=== PATIENT | female | born 1985 | race Hispanic/Latino ===

== ENCOUNTER 2022-05-24 12:38 | Outpatient (CLI) | payer OTHER | END 2022-05-24 12:39 | disposition home or self-care (01) | LOC: CSHLAB 12:38 | PROVIDERS: ATTEND Student in an Organized Health Care Education/Training Program | DX: Z20.822 Contact with and (suspected) exposure to COVID-19 (principal) | CPT/HCPCS: 87811 ==

== ENCOUNTER 2022-05-27 19:15 | Inpatient (IN) | payer OTHER ==
[2022-05-27 20:57] VITALS: BMI 28.5
[2022-05-27] MEDS ORDERED: hydrALAZINE 20 MG/ML VIAL SLOW IVP PRN (23:39)
[2022-05-27] MEDS ORDERED: Carboprost 250 MCG/ML AMP IM PRN (23:39)
[2022-05-27] MEDS ORDERED: Methylergonovine 0.2 MG/ML VIAL IM PRN (23:39)
[2022-05-27] MEDS ORDERED: Ondansetron PF 4 MG/2 ML Vial IVP PRN (23:39)
[2022-05-27] MEDS ORDERED: Lidocaine 1% (PF) 30 ML VIAL SC PRN (23:39)
[2022-05-27] MEDS ORDERED: Misoprostol 200 MCG TAB PR PRN (23:39)
[2022-05-27] MEDS ORDERED: Promethazine HCl 25 MG/ML VIAL IM PRN (23:39)
[2022-05-27] MEDS ORDERED: Ibuprofen 800 MG TAB PO PRN (23:39)
[2022-05-27] MEDS ORDERED: Acetaminophen 500 MG TAB PO PRN (23:39)
[2022-05-27] MEDS ORDERED: NS w/ Oxytocin 30 units 500 ML IV SCH ×2 (23:45)
[2022-05-27] MEDS ORDERED: Misoprostol 100 MCG TAB VAG SCH (23:45)
[2022-05-27] MEDS ORDERED: Lactated Ringer's 1,000 ML IV SCH (23:45)
[2022-05-28 00:23] LABS: Mean Corpuscular HGB CONC 33.7 g/dL (32.0-36.0); Mean Corpuscular Volume 100.8 fl (81.6-98.3); Platelet Count 244 10x3/uL (150-450); RBC Distribution Width 12.2 % (11.5-14.5); Red Blood Cell (RBC) Count 3.53 10x6/uL (3.90-5.03); White Blood Cell (WBC) Count 7.3 10x3/uL (3.5-10.5)
[2022-05-28 00:48] LABS: Syphilis Antibody Nonreactive (Nonreactive); Syphilis Antibody Index 0.08 S/CO (<1.00 Non-Reactive)
[2022-05-28 00:49] LABS: HBSAg Index 0.23 S/CO (0-0.99); Hep B Surf Ag Non-Reactive S/CO (NonReactive)
[2022-05-28] MEDS ORDERED: Misoprostol 100 MCG TAB VAG SCH ×2 (03:00)
[2022-05-28] MEDS ORDERED: Dinoprostone 10 MG Suppository VAG SCH (04:15)
[2022-05-28] MEDS ORDERED: Morphine PF 10 MG/10 ML VIAL ONE (07:37)
[2022-05-28] MEDS ORDERED: Dexamethasone 4 mg/ml Vial ONE (07:38)
[2022-05-28] MEDS ORDERED: Phenylephrine 40 MG/NS 250 ML 250 ML ONE (07:38)
[2022-05-28] MEDS ORDERED: Fentanyl 100 MCG/2 ML VIAL ONE (07:38)
[2022-05-28] MEDS ORDERED: Oxytocin 10 UNITS/ML VIAL ONE (07:38)
[2022-05-28] MEDS ORDERED: Ondansetron PF 4 MG/2 ML Vial ONE (07:38)
[2022-05-28] MEDS ORDERED: CEFAZOLIN 2 GM VIAL ONE (07:47)
[2022-05-28] MEDS ORDERED: Famotidine/PF 20 mg/2ml Vial ONE (07:48)
[2022-05-28] MEDS ORDERED: Naloxone HCl 0.4 mg/ml Vial IVP PRN ×2 (08:02)
[2022-05-28] MEDS ORDERED: diphenhydrAMINE 50 MG/ML VIAL IVP PRN (08:02)
[2022-05-28] MEDS ORDERED: Ondansetron PF 4 MG/2 ML Vial IVP PRN (08:02)
[2022-05-28] MEDS ORDERED: Naloxone HCl 0.4 mg/ml Vial IV PRN (08:02)
[2022-05-28] MEDS ORDERED: Promethazine HCl 25 MG/ML VIAL IM PRN (08:02)
[2022-05-28] MEDS ORDERED: Moisturizing Cream (Eucerin) 113 GM JAR TOP PRN (08:02)
[2022-05-28] MEDS ORDERED: Promethazine HCl 25 MG SUPP PR PRN (08:02)
[2022-05-28] MEDS ORDERED: Communication Order-Pharmacy FS SCH (08:15)
[2022-05-28 08:29] LABS: HIV (1/2) Antibody/Antigen Non-Reactive (NonReactive); HIV 1/2 INDEX 0.09 S/CO (<1.00)
[2022-05-28] MEDS ORDERED: Acetaminophen 325 MG TAB PO PRN (09:54)
[2022-05-28] MEDS ORDERED: Lactated Ringer's 1,000 ML IV SCH (12:15)
[2022-05-28 12:56] LABS: Hemoglobin 11.8 g/dL (12.0-15.5); Mean Corpuscular HGB CONC 32.7 g/dL (32.0-36.0); Mean Corpuscular Hemoglobin 33.8 pg (27.0-33.0); Mean Corpuscular Volume 103.4 fl (81.6-98.3); Platelet Count 213 10x3/uL (150-450); RBC Distribution Width 12.3 % (11.5-14.5); Red Blood Cell (RBC) Count 3.49 10x6/uL (3.90-5.03); White Blood Cell (WBC) Count 15.1 10x3/uL (3.5-10.5)
[2022-05-28] MEDS: Ketorolac Tromethamine 30 MG/ML VIAL IVP PRN (17:53)
[2022-05-28] MEDS ORDERED: HYDROcodone/Acetaminophen 5/325 mg Tablet PO PRN (20:30)
[2022-05-29] MEDS: Ketorolac Tromethamine 30 MG/ML VIAL IVP PRN (01:14)
[2022-05-29 03:57] LABS: Hemoglobin 9.4 g/dL (12.0-15.5); Mean Corpuscular HGB CONC 33.3 g/dL (32.0-36.0); Mean Corpuscular Hemoglobin 33.1 pg (27.0-33.0); Mean Corpuscular Volume 99.3 fl (81.6-98.3); Mean Platelet Volume 10.1 fl (7.4-10.4); Platelet Count 180 10x3/uL (150-450); RBC Distribution Width 12.1 % (11.5-14.5); Red Blood Cell (RBC) Count 2.84 10x6/uL (3.90-5.03); White Blood Cell (WBC) Count 8.1 10x3/uL (3.5-10.5)
[2022-05-29] MEDS: Docusate 100 MG CAP PO PRN (08:46)
[2022-05-29] MEDS ORDERED: diphenhydrAMINE 25 MG CAP PO PRN (11:08)
[2022-05-29] MEDS ORDERED: Lanolin Ointment 7 GM TUBE TOP PRN (11:08)
[2022-05-29] MEDS ORDERED: Simethicone Chewable 80 MG TAB PO PRN (11:08)
[2022-05-29] MEDS: HYDROcodone/Acetaminophen 5/325 mg Tablet PO PRN ×3 (12:40→21:26)
[2022-05-29] MEDS: Ibuprofen 800 MG TAB PO SCH ×2 (14:16→21:26)
[2022-05-30] MEDS: HYDROcodone/Acetaminophen 5/325 mg Tablet PO PRN ×2 (02:09→09:32)
[2022-05-30] MEDS: Ibuprofen 800 MG TAB PO SCH (05:08)
[2022-05-30 05:53] LABS: Hemoglobin 10.1 g/dL (12.0-15.5)
[2022-05-30] MEDS ORDERED: Ferrous Gluconate 324 MG TAB PO SCH (08:00)
[2022-05-30 08:55] VITALS: BP 117/80; TEMP 98
[2022-05-30] MEDS ORDERED: Polyethylene Glycol 3350 17 GM Packet PO SCH (09:00)
[2022-05-30] MEDS ORDERED: Prenatal Vitamin 1 TAB PO SCH (09:00)
[2022-05-30] MEDS: Docusate 100 MG CAP PO PRN (09:30)
== END 2022-05-30 13:00 | disposition home or self-care (01) | DRG 787 ==
LOC: CSHLD 20:15 → CSHPP 05-28 12:13
PROVIDERS: ADMIT Student in an Organized Health Care Education/Training Program; ATTEND Student in an Organized Health Care Education/Training Program
PROC: 3E0P7VZ Introduction of Hormone into Female Reproductive, Via Natural or Artificial Opening (ICD-10-PCS; 2022-05-27)
PROC: 10D00Z1 Extraction of Products of Conception, Low, Open Approach (ICD-10-PCS; principal; 2022-05-28)
DX: O99.344 Other mental disorders complicating childbirth (principal); R71.0 Precipitous drop in hematocrit; Z3A.41 41 weeks gestation of pregnancy; Z37.0 Single live birth; Z90.79 Acquired absence of other genital organ(s); F41.9 Anxiety disorder, unspecified; Z79.82 Long term (current) use of aspirin; Z79.899 Other long term (current) drug therapy; Z91.018 Allergy to other foods; O76 Abnormality in fetal heart rate and rhythm complicating labor and delivery; O90.89 Other complications of the puerperium, not elsewhere classified; R10.9 Unspecified abdominal pain
CPT/HCPCS: 36415; 51702; 85014; 85018; 85027; 86762; 86780; 86850; 86900; 86901; 87340; 87389; J0690; J1100; J1885; J2274; J2405; J2590; J3010; S0028

== ENCOUNTER 2022-12-15 09:07 | Emergency (ER) | payer OTHER | END 2022-12-15 11:34 | disposition home or self-care (01) | LOC: CSHERS 09:07 | DX: B34.9 Viral infection, unspecified (principal) | CPT/HCPCS: 87081; 87430; 99283 ==